=== PATIENT | female | born 1985 | race Two or more races ===

== ENCOUNTER 2017-11-17 04:54 | Emergency (ER) | payer SELFPAY ==
[2017-11-17 05:40] LABS: URINE HCG POC HCG NEGATIVE (Negative)
[2017-11-17] MEDS: SUCRALFATE 1 GM TABLET. PO (05:52)
[2017-11-17] MEDS: HYDROcodone/APAP 5/325MG 1 TAB TABLET PO (05:52)
[2017-11-17 05:56] LABS: AMPHETAMINE/METHAMPHETAMINE NEG (NEG); BARBITURATES NEG (NEG); BENZODIAZEPINES NEG (NEG); CANNABINOIDS NEG (NEG); COCAINE NEG (NEG); ETHANOL, URINE NEG (NEG); METHADONE NEG (NEG); OPIATES POS (NEG); PHENCYCLIDINE NEG (NEG)
[2017-11-17 06:18] LABS: BASO # 0.1 x10^3/uL (0.0-0.2); BASO % 0 % (0-3); EOS % 0 % (0-3); HEMATOCRIT 29.3 % (36.0-47.0); HEMOGLOBIN 8.9 g/dL (12.0-15.5); LYMPH # 1.6 x10^3/uL (1.0-4.8); LYMPH % 7 % (24-48); MEAN CORPUSCULAR HEMOGLOBIN 19 pg (25-35); MEAN CORPUSCULAR HGB CONC 30 g/dL (31-37); MEAN CORPUSCULAR VOLUME 61 fL (79-100); MONO # 1.8 x10^3/uL (0.0-1.1); MONO % 8 % (0-9); NEUT % 85 % (31-73); PLATELET COUNT 690 x10^3/uL (140-400); RED BLOOD COUNT 4.79 x10^6/uL (3.50-5.40); RED CELL DISTRIBUTION WIDTH 20.8 % (11.5-14.5); WHITE BLOOD COUNT 22.5 x10^3/uL (4.0-11.0)
[2017-11-17 06:20] LABS: ADD MAN DIFF? YES
[2017-11-17 06:32] LABS: ANION GAP 10 (6-14); BLOOD UREA NITROGEN 8 mg/dL (7-20); BUN/CREATININE RATIO 11 (6-20); CALCIUM 9.1 mg/dL (8.5-10.1); CARBON DIOXIDE 27 mmol/L (21-32); CHLORIDE 99 mmol/L (98-107); CREATININE 0.7 mg/dL (0.6-1.0); GFR 96.4; GLUCOSE 113 mg/dL (70-99); POTASSIUM 3.7 mmol/L (3.5-5.1); SODIUM 136 mmol/L (136-145)
[2017-11-17 06:37] LABS: ALBUMIN 3.2 g/dL (3.4-5.0); ALBUMIN/GLOBULIN RATIO 0.7 (1.0-1.7); ALK PHOS 133 U/L (46-116); ALT (SGPT) 17 U/L (14-59); AST (SGOT) 21 U/L (15-37); LIPASE 40 U/L (73-393); TOTAL BILIRUBIN 0.3 mg/dL (0.2-1.0); TOTAL PROTEIN 8.1 g/dL (6.4-8.2)
[2017-11-17 07:09] LABS: % BANDS 6 % (0-9); % LYMPHS 7 % (24-48); % MONOS 6 % (0-10); % SEGS 81 % (35-66); ANISOCYTOSIS MOD; MICROCYTOSIS PRESENT; PLT ESTIMATE INCREASED (ADEQUATE); POLYCHROMASIA PRESENT
== END 2017-11-17 06:47 | disposition home or self-care (01) ==
LOC: ER 04:54
DX: K30 Functional dyspepsia (principal); K08.409 Partial loss of teeth, unspecified cause, unspecified class
CPT/HCPCS: 36415; 80053; 80307; 81025; 83690; 85007; 85025; 99284